=== PATIENT | female | born 1950 | race Two or more races ===

== ENCOUNTER 2016-12-30 16:36 | Inpatient (IN) | payer OTHER ==
--- NOTE | ~2016-12-30 | HP ---
Unit #: [id number] #: [id number] Patient: ZOË PLASCENCIA [id number] [address] [address] [id number] E MR#: [id number] NAME: ZOË PLASCENCIA ROOM: Age: 66 Sex: F Admission Date: 12/30/2016 : 1950 Attending Physician: Hugo Gill D.O. Primary Care Physician: Primary Care Physician No HISTORY AND PHYSICAL CHIEF COMPLAINT Uncontrolled diabetes mellitus, nausea and vomiting. HISTORY OF PRESENT ILLNESS This pleasant 66-year-old German-speaking female with AODM, hypertension, hyperlipidemia, is admitted for uncontrolled diabetes mellitus, along with nausea and vomiting. The patient states that she was well until one week prior to admission when she began to experience nonspecific generalized abdominal pain, mainly in the suprapubic and periumbilical region. Began to experience nonbloody nausea and vomiting times three days, denies melena or hematochezia. She presented to this emergency department this evening with a serum glucose of 414, potassium of 5.7. Her lipase is elevated and a CT scan shows evidence of subtle duodenitis around the second portion of the duodenum. There is a likely 1.6 cm left ovarian cyst as well. In the ER, she was bolused with a liter of saline, given Zofran, Pepcid. Her current serum glucose is 262. Of note, she does take an VANIA inhibitor. PAST MEDICAL HISTORY 1. AODM. 2. Hypertension. 3. Hyperlipidemia. 4. Admission for community-acquired pneumonia December 2014. ALLERGIES None. HOME MEDICATIONS 1. Metformin 1000 mg b.i.d. 2. Lisinopril 10 mg daily. 3. What I believe is Mevacor. SOCIAL HISTORY The patient is originally from [place]. She stopped smoking about 18 years ago. Does not drink alcohol. FAMILY HISTORY Negative for CAD. REVIEW OF SYSTEMS Difficult to obtain due to language barrier, roadmaster was used. PHYSICAL EXAMINATION Unit #: [id number] #: [id number] Patient: ZOË PLASCENCIA VITAL SIGNS: Temperature 98.3, pulse 115, respirations 16, blood pressure 128/83, O2 saturation 94% on room air. GENERAL: Pleasant, 66-year-old female currently in no acute distress. HEENT: Eyes PERRLA. Extraocular muscles are intact. Pharynx is benign. NECK: Supple without adenopathy or thyromegaly. CHEST: Clear. HEART: Normal S1, S2 without S3, S4 or murmur. ABDOMEN: Bowel sounds are present. Mild tenderness in the epigastric region without rebound or guarding. No hepatosplenomegaly or masses. Mildly tender in the suprapubic area but patient does have to use the bathroom. EXTREMITIES: Without clubbing, cyanosis, or edema. Pedal pulses are present. No ulcers on the feet. NEUROLOGIC: Awake, alert, oriented. Cranial nerves are intact. Equal strength throughout. DIAGNOSTIC STUDIES LABORATORY: Hematocrit 43.7, white blood count 15.2, normal platelet count. SMA-12 glucose 414, potassium 5.7, alkaline phosphatase 284, lipase 350. Cardiac markers are negative. Urinalysis positive for glucose without significant wbc's or rbc's. IMAGING: CT scan shows subtle inflammation of the second portion of the duodenum, could be consistent with duodenitis. Likely 1.6 cm left ovarian cyst and bilateral renal cysts. ASSESSMENT 1. Uncontrolled adult-onset diabetes mellitus. 2. Nausea and vomiting for the past three days with elevated lipase and possible duodenitis on CT scan. 3. Hypertension. 4. Hyperkalemia secondary to uncontrolled diabetes mellitus along with VANIA inhibitor. 5. Hyperlipidemia. PLAN 1. Proton pump inhibitor, will ask [facility] to see. 2. Gallbladder ultrasound, check triglycerides level, repeat labs in the morning. 3. Glucose control. Will hold metformin and give sliding scale insulin. 4. Small dose of Kayexalate. 5. SCDs for DVT prophylaxis. 6. Change lisinopril to hydralazine while potassium is elevated. Dictated by Reta Mcnulty/bob TD: 12/30/2016 22:16 JOB #: [id number] [facility] Unit #: [id number] #: [id number] Patient: ZOË PLASCENCIA HISTORY AND PHYSICAL Page 1 of 1 X Brigitte Schuster MD X HISTORY AND PHYSICAL
--- NOTE | ~2016-12-30 | CT2 ---
[facility] A Service of [facility] RADIOLOGY TEXT RESULTS PATIENT: ZOË PLASCENCIA LOCATION: [facility] 338- : 52 UNIT #: [id number] AGE: [address]: Nguyen Cheung MD SEX: F ORDER DR: [id number] [facility] [address] [facility]. [place], [place] [address] [id number] I MR#: [id number] Acc #: [id number] NAME: ZOË PLASCENCIA : 1950 SEX: F STUDY DATE/TIME: 12/30/2016 19:29 UNIT: [address] ROOM: [facility] STUDY DESCRIPTION: CT Abd and Pelv W Cont Attending Physician: Nguyen Cheung M.D. Ordering Physician: Hugo Gill D.O. Primary Care Physician: No Primary Care Physician MEDICAL IMAGING REPORT This report is preliminary unless electronic signature is present EXAM CT abdomen and pelvis 12/30. INDICATION Abdominal pain with nausea and vomiting for 3 days. TECHNIQUE Axial images were obtained through the abdomen and pelvis following IV contrast administration. Multiplanar reformats were obtained. This CT exam was performed with one or more of the following radiation dose reduction techniques: Automatic exposure control, adjustment of mA and/or kV according to patient size, and iterative reconstruction. COMPARISON 04/26/2016. FINDINGS Abdomen: Lung bases are clear. Gallbladder unremarkable. No biliary obstruction is seen. There are bilateral renal cysts. Solid organs are otherwise normal. No free fluid or adenopathy. There is some subtle haziness adjacent to the second and third portions of the duodenum. This could indicate mild duodenitis. The remainder of the unopacified GI tract is normal. Pelvis: The appendix is normal. The remainder of the unopacified GI tract is normal as well. Urinary bladder is normal. There is a probable 1.6 cm left ovarian cyst. Solid pelvic organs are otherwise unremarkable. IMPRESSION 1. Subtle haziness around the second and third portions of the duodenum may reflect mild duodenitis. The remainder of the unopacified GI tract, including the appendix, is normal. STS. [facility] A Service of [facility] RADIOLOGY TEXT RESULTS PATIENT: ZOË PLASCENCIA LOCATION: [facility] 338-01 : [birth year] UNIT #: [id number] AGE: [address]: Nguyen Cheung MD SEX: F ORDER DR: 2. Probable 1.6 cm left ovarian cyst. 3. Bilateral renal cysts. Dictated by... Lane Canales Jr., M.D. THIS IS AN ELECTRONICALLY VERIFIED REPORT Lane Canales Jr., M.D. at 12/31/2016 10:04 AM MARIOLA/anne TD: 12/31/2016 08:15 JOB #: [id number] MEDICAL IMAGING REPORT Page 1 of 1 COPY
--- NOTE | ~2016-12-30 | OR ---
Unit #: [id number] #: [id number] Patient: ZOË PLASCENCIA [id number] [address] [place], [place] [address] [id number] I MR#: [id number] NAME: ZOË PLASCENCIA ROOM: [facility] Date of Procedure: 01/01/2017 Admission Date: 12/30/2016 Surgeon: Pako Carnes M.D. : 1950 Attending Physician: Nguyen Cheung M.D. OPERATIVE REPORT PREOPERATIVE DIAGNOSIS Epigastric pain. POSTOPERATIVE DIAGNOSIS Epigastric pain. PROCEDURE PERFORMED 1. Esophagogastroduodenoscopy. 2. Biopsy from antrum for Helicobacter pylori testing. ANESTHESIA Monitored anesthesia care. FINDINGS The patient had moderate gastritis and small hiatal hernia. SPECIMEN Sent to pathology. COMPLICATIONS None apparent. CONDITION The patient tolerated the procedure well. INDICATIONS FOR PROCEDURE The patient is a 66-year-old female with epigastric pain and discomfort. She presents at this time for evaluation by upper endoscopy. DESCRIPTION OF PROCEDURE After obtaining informed consent, the patient was brought to the endoscopy suite. After adequate monitored anesthesia care, had the endoscope placed through the mouth into the upper esophagus under direct vision. It was advanced to the second portion of the duodenum without difficulty with the lumen always in view. The duodenum was normal as was the duodenal bulb. The pylorus opened normally. There was some mild to moderate gastritis distally and a biopsy was obtained for Helicobacter pylori testing. On retroflexion back to the GE junction, there was a small hiatal hernia seen. No other significant abnormalities were seen in the proximal third, middle third, or incisura. On pulling back above the GE junction, there Unit #: [id number] #: [id number] Patient: ZOË PLASCENCIA was no stenosis, stricture, or neoplasm seen. There was no significant esophagitis. The remaining portion of the esophagus was within normal limits. Laryngeal structures were grossly normal as viewed from above. The patient went from the endoscopy suite to recovery area in stable condition. RECOMMENDATIONS Change to Protonix 40 mg p.o. daily. Advance diet as tolerated. Dictated by... Pako Carnes M.D. KASEY/lisa TD: 01/30/2017 03:18 JOB #: [id number] CC: [facility] OPERATIVE REPORT Page 1 of 1 X Pako Carnes MD PROCEDURE OPERATIVE NOTE
--- NOTE | ~2016-12-30 | US67 ---
[facility] A Service of [facility] RADIOLOGY TEXT RESULTS PATIENT: ZOË PLASCENCIA LOCATION: [facility] : 54 UNIT #: [id number] AGE: [address]: Nguyen Cheung MD SEX: F ORDER DR: [id number] [facility] [address] [facility]. [place], [place] [address] [id number] I MR#: [id number] Acc #: [id number] NAME: ZOË PLASCENCIA : 1950 SEX: F STUDY DATE/TIME: 12/31/2016 8:30 UNIT: [address] ROOM: [facility] STUDY DESCRIPTION: US Gallbladder Attending Physician: Nguyen Cheung M.D. Ordering Physician: Hugo Gill D.O. Primary Care Physician: Primary Care Physician No MEDICAL IMAGING REPORT This report is preliminary unless electronic signature is present EXAM Right upper quadrant ultrasound INDICATION Generalized abdominal pain for [address] scan of the abdomen. COMPARISON CT abdomen and pelvis, 12/30/2016. FINDINGS The visualized portions of the pancreas are normal. The echogenicity and echotexture of the hepatic parenchyma is normal. No hepatic mass. The intrahepatic bile ducts are normal in caliber. The common duct is normal in size at the anabell hepatis measuring 0.2 cm. The gallbladder is not distended. There is borderline thickening of the gallbladder wall measuring 0.3-0.4 cm. No gallstones are identified. This borderline gallbladder wall thickening is probably related to a lack of distension. The right kidney measures 12.5 cm. Renal cortical thickness and echogenicity is normal. No hydronephrosis. No ascites. IMPRESSION 1. No gallstones. 2. Borderline thickening of the gallbladder wall is likely due to the lack of distension. Dictated by... Fredy Raymond M.D. [facility] A Service of [facility] RADIOLOGY TEXT RESULTS PATIENT: ZOË PLASCENCIA LOCATION: [facility] : 52 UNIT #: [id number] AGE: [address]: Nguyen Cheung MD SEX: F ORDER DR: THIS IS AN ELECTRONICALLY VERIFIED REPORT Fredy Raymond M.D. at 12/31/2016 1:46 PM Olena TD: 12/31/2016 12:02 JOB #: [id number] MEDICAL IMAGING REPORT Page 1 of 1 COPY
--- NOTE | ~2016-12-30 | CO ---
Unit #: [id number] #: [id number] Patient: ZOË PLASCENCIA [id number] [address] [place], [place] [address] [id number] I MR#: [id number] NAME: ZOË PLASCENCIA ROOM: 338 Age: 66 Sex: F Admission Date: 12/30/2016 : 1950 Attending Physician: Nguyen Cheung M.D. Primary Care Physician: Primary Care Physician No Consultation Date: 12/31/2016 CONSULTATION REPORT BRIEF HISTORY The patient is a 66-year-old lady, who presents with a 2-day history of nausea, vomiting, abdominal pain. No fevers. No chills. No history of similar type pain. She was admitted to the emergency room and worked up and found to have potassium 5.1, and blood glucose of 414. On my evaluation, she denies any abdominal pain. Has not vomited over the evening. PAST MEDICAL HISTORY Diabetes. PAST SURGICAL HISTORY She has had no previous surgeries. HOME MEDICATIONS Omeprazole, Phenergan, Glucophage, Zantac, and glipizide. SOCIAL HISTORY No smoking. No alcohol. FAMILY HISTORY Negative for GI malignancy. REVIEW OF SYSTEMS No cardiopulmonary complaints at this time. Else, 10 systems reviewed and negative. PHYSICAL EXAMINATION GENERAL: She is awake, alert, appropriate, in no distress. VITAL SIGNS: Currently, afebrile. HEENT: Unremarkable. NECK: Supple. Trachea midline. LUNGS: Clear to auscultation bilateral. Breath sounds symmetric. CARDIOVASCULAR: Regular rate and rhythm. ABDOMEN: Soft, nontender, nondistended. I palpated no masses. No hepatosplenomegaly. EXTREMITIES: No clubbing, cyanosis, or edema. DIAGNOSTIC STUDIES LABORATORY RESULTS: Show potassium of 5.7. Chemistries are else normal. White count normal. IMAGING STUDIES: CT scan is pending. Unit #: [id number] #: [id number] Patient: ZOË PLASCENCIA ASSESSMENT Abdominal pain, nausea, vomiting. PLAN Recommend correcting glucose and potassium. We will plan for EGD evaluation. Agree with proton pump inhibitors. Dictated by... Nima Leal M.D. DONNA/lisa TD: 01/01/2017 01:54 JOB #: [id number] CONSULTATION REPORT Page 1 of 1 X Nima Leal MD CONSULTATION REPORT
--- NOTE | ~2016-12-30 | DS ---
Unit #: [id number] #: [id number] Patient: ZOË PLASCENCIA [id number] [address] [address] [id number] I MR#: [id number] NAME: ZOË PLASCENCIA ROOM: 338 Age: 66 Sex: F Admission Date: 12/30/2016 : 1950 Discharge Date: Attending Physician: Nguyen Cheung M.D. Primary Care Physician: No Primary Care Physician DISCHARGE SUMMARY DISCHARGE DIAGNOSES 1. Acute idiopathic pancreatitis. 2. Acute gastritis. 3. Acute duodenitis. 4. Diabetes mellitus type 2, uncontrolled. 5. Hypertension, uncontrolled. 6. Hyperlipidemia. 7. Hyperkalemia. CONSULTATION LSA. PROCEDURE Patient had EGD, which shows gastritis and a small hiatal hernia. DIAGNOSTIC STUDIES LABORATORY: Glucose 215, sodium 135, potassium 4, creatinine 0.4, AST 15, ALT 26, alkaline phosphatase 206, bilirubin (1) , and albumin 3.1. WBC 9.1, hemoglobin 13.3, and platelets 313. IMAGING: Ultrasound of the gallbladder shows no gallstones. Borderline thickening of gallbladder wall, likely due to lack of distention. CT abdomen and pelvis shows mild duodenitis. ALLERGIES None. DISCHARGE MEDICATIONS 1. Tylenol 650 q.6 p.r.n. pain. 2. Metformin 1000 p.o. b.i.d. 3. Lovastatin 40 daily. 4. Lisinopril 10 daily. 5. Lortab 5 mg q.8 p.r.n. pain. 6. Zyprexa 20 p.o. daily. Home medications: 7. Protonix 40 daily. 8. Glipizide 10 mg p.o. b.i.d. HOSPITALIZATION COURSE This is a 66-year-old admitted because of abdominal pain and nausea/vomiting. Acute idiopathic pancreatitis: Ultrasound is negative for gallstones. Unit #: [id number] #: [id number] Patient: ZOË PLASCENCIA She denies having any alcohol. I reviewed her medications. I do not think any medication is causing it. She was NPO. IV fluids given. LSA saw this patient. Currently, she wants to eat. I am going to resume her low-fat diet. If tolerates, patient will be discharged home. Acute duodenitis and gastritis: Status post EGD with nausea and vomiting. Currently, nausea and vomiting resolved. Patient will be discharged on Protonix. DISCHARGE INSTRUCTIONS 1. Discharge home after tolerating diet. 2. Follow up with family physician in one week's time. Dictated by... Reta Vera TD: 01/01/2017 13:44 JOB #: [id number] DISCHARGE SUMMARY Page 1 of 1 X Nguyen Cheung MD X DISCHARGE SUMMARY
[~2016-12-30 16:36] MED LIST: ACETAMINOPHEN650 M1 PO; AMARYL2 MG PO; CIPRO PO; GLIPIZIDE10 MG PO; LORTAB 5-325 M1 EACH PO; METFORMIN HCL500 M1 PO; METFORMIN PO; MEVACOR PO; OMEPRAZOLE40 MG PO; PHENERGAN25 MG PO; RANITIDINE HCL150 M1 PO; ZESTRIL10 M2 PO; ZOFRAN ODT4 MG PO
[2016-12-30 18:10] LABS: POC - CKMB <1.0 ng/mL (0.0-7.9); POC - TROPONIN <0.05 ng/mL (<=0.05)
[2016-12-30 18:26] LABS: BASOPHIL# 0.1 X10e3 (0-0.3); BASOPHIL% 0.8 % (0-2.5); DIFF IND YES; EOSINOPHIL# 0.2 X10e3 (0-0.7); EOSINOPHIL% 1.4 % (0.0-7.0); HEMATOCRIT 43.7 % (35.0-45.0); HEMOGLOBIN 14.4 gm/dL (12.0-16.0); LYMPHOCYTE# 3.9 X10e3 (1.0-3.5); LYMPHOCYTE% 25.6 % (17.0-45.0); MEAN CELL VOLUME 92.1 FL (83-96); MEAN CORPUSCULAR HEMOGLOBIN 30.3 PG (28-34); MEAN CORPUSCULAR HGB CONC 32.9 g/dL (30-36); MEAN PLATELET VOLUME 9.3 FL (6.5-11.5); MONOCYTE# 0.9 X10e3 (0-1.0); MONOCYTE% 6.2 % (3.0-12.0); PLATELET COUNT 337 X10e3 (140-420); RED BLOOD COUNT 4.75 X10e (3.90-5.30); WHITE BLOOD COUNT 15.2 X10e3 (4.0-10.5)
[2016-12-30 18:41] LABS: ALBUMIN SERUM 4.2 g/dL (3.5-5.0); ALKALINE PHOSPHATASE 284 U/L (32-92); ALT (SGPT) 39 U/L (10-40); AST (SGOT) 20 U/L (10-42); BILIRUBIN,TOTAL 0.4 mg/dL (0.2-2.0); BLOOD UREA NITROGEN 21 mg/dL (9-23); CALCIUM SERUM 9.8 mg/dL (8.4-10.2); CARBON DIOXIDE 30 mmol/L (22-31); CHLORIDE 94 mmol/L (100-111); CREATININE SERUM 0.7 mg/dL (0.6-1.4); GLOM FILT RATE Estimated 91.6 mL/min (>60); GLUCOSE FASTING 414 mg/dL (70-110); LIPASE 350 U/L (22-51); SODIUM 132 mmol/L (135-145)
[2016-12-30 18:45] LABS: BILIRUBIN, DIRECT <0.1 mg/dL (0.0-0.2); BILIRUBIN,INDIRECT 0.3 mg/dL (0.0-0.9); POTASSIUM 5.7 mmol/L (3.5-5.1)
[2016-12-30 19:01] LABS: URINE SOURCE CLEAN CATCH
[2016-12-30 19:04] LABS: URINE APPEARANCE CLEAR; URINE BILIRUBIN NEG (NEG); URINE BLOOD NEG (NEG); URINE COLOR YELLOW; URINE GLUCOSE >1000 MG/DL (NEG); URINE KETONE 1+ (NEG); URINE LEUKOCYTE ESTERASE NEG (NEG); URINE NITRATE NEG (NEG); URINE PROTEIN NEG (NEG); URINE SPECIFIC GRAVITY 1.031 (1.003-1.035)
[2016-12-30 19:15] LABS: PLATELET ESTIMATE NORMAL (NORMAL); RBC NORMAL YES
[2016-12-30 19:21] LABS: CULTURE INDICATED? NO
[2016-12-31 05:45] LABS: HEMATOCRIT 39.2 % (35.0-45.0); HEMOGLOBIN 12.9 gm/dL (12.0-16.0); MEAN CELL VOLUME 92.6 FL (83-96); MEAN CORPUSCULAR HEMOGLOBIN 30.4 PG (28-34); MEAN CORPUSCULAR HGB CONC 32.8 g/dL (30-36); MEAN PLATELET VOLUME 8.2 FL (6.5-11.5); RED BLOOD COUNT 4.24 X10e (3.90-5.30); RED CELL DISTRIBUTION WIDTH 13.1 % (11.0-15.5); WHITE BLOOD COUNT 10.1 X10e3 (4.0-10.5)
[2016-12-31 06:09] LABS: PARTIAL THROMBOPLASTIN TIME 24.1 SECONDS (23.5-31.3); PROTHROMBIN TIME (PATIENT) 10.9 SECONDS (9.6-11.5)
[2016-12-31 07:01] LABS: ALBUMIN SERUM 3.3 g/dL (3.5-5.0); BILIRUBIN,TOTAL 0.2 mg/dL (0.2-2.0); CALCIUM SERUM 8.3 mg/dL (8.4-10.2); CREATININE SERUM 0.5 mg/dL (0.6-1.4); GLOM FILT RATE Estimated 102.3 mL/min (>60); POTASSIUM 4.5 mmol/L (3.5-5.1); PROTEIN TOTAL SERUM 6.2 g/dL (6.0-8.3)
[2017-01-01 05:47] LABS: HEMATOCRIT 40.7 % (35.0-45.0); HEMOGLOBIN 13.3 gm/dL (12.0-16.0); MEAN CORPUSCULAR HEMOGLOBIN 30.4 PG (28-34); MEAN CORPUSCULAR HGB CONC 32.6 g/dL (30-36); MEAN PLATELET VOLUME 8.1 FL (6.5-11.5); RED BLOOD COUNT 4.38 X10e (3.90-5.30); RED CELL DISTRIBUTION WIDTH 13.1 % (11.0-15.5); WHITE BLOOD COUNT 9.1 X10e3 (4.0-10.5)
[2017-01-01 07:05] LABS: ALBUMIN SERUM 3.1 g/dL (3.5-5.0); BILIRUBIN,TOTAL 0.2 mg/dL (0.2-2.0); BUN/CREATININE RATIO 22.5; CALCIUM SERUM 8.8 mg/dL (8.4-10.2); CREATININE SERUM 0.4 mg/dL (0.6-1.4); GLOM FILT RATE Estimated 110.1 mL/min (>60); PROTEIN TOTAL SERUM 5.9 g/dL (6.0-8.3)
[2017-01-01] MEDS ORDERED: PANTOPRAZOLE SO40 MG PO (15:32)
[2017-01-01] MEDS ORDERED: OLANZAPINE10 MG PO (15:33)
[2017-01-03 23:13] LABS: CHLAMYDIA TRACH Not Detected (Not Detected); N GONOR Not Detected (Not Detected)
== END 2017-01-01 17:35 | disposition home or self-care (01) | DRG 637 ==
LOC: CED 16:36 → CEDOF 22:15 → C3A PCU 22:15 → CEDOF 23:23 → C3A PCU 23:23 → CED 23:23 → CEDOF 12-31 02:28 → C3A PCU 12-31 02:28
PROVIDERS: Emergency Medicine; Internal Medicine; Surgery
PROC: 0DB78ZX Excision of Stomach, Pylorus, Via Natural or Artificial Opening Endoscopic, Diagnostic (ICD-10-PCS; principal; 2017-01-01 12:00)
DX: E11.65 Type 2 diabetes mellitus with hyperglycemia (principal); K85.00 Idiopathic acute pancreatitis without necrosis or infection; K29.80 Duodenitis without bleeding; K29.00 Acute gastritis without bleeding; E78.5 Hyperlipidemia, unspecified; I10 Essential (primary) hypertension; E87.5 Hyperkalemia; K44.9 Diaphragmatic hernia without obstruction or gangrene; Z79.84 Long term (current) use of oral hypoglycemic drugs; Z87.891 Personal history of nicotine dependence; N83.202 Unspecified ovarian cyst, left side
CPT/HCPCS: 36415; 74177; 76705; 80048; 80053; 80076; 81003; 82150; 82553; 82947; 83690; 84478; 84484; 85025; 85027; 85610; 85730; 87077; 87491; 87591; 87808; 87905; 96361; 96374; 96375; 99285; C9113; J1815; J2060; J2270; J2405; Q9967

== ENCOUNTER 2017-03-08 09:17 | Emergency (ER) | payer OTHER ==
[~2017-03-08] VITALS: Ht 172.7 cm; Wt 54.4 kg
--- NOTE | ~2017-03-08 | CT4 ---
[facility] A Service of [facility] RADIOLOGY TEXT RESULTS PATIENT: ZOË PLASCENCIA LOCATION: [facility] : 54 UNIT #: [id number] AGE: [address]: Linda Millan MD SEX: F ORDER DR: [id number] [facility] [address] [place], [place] [address] [id number] E MR#: [id number] Acc #: [id number] NAME: ZOË PLASCENCIA : 1950 SEX: F STUDY DATE/TIME: 03/08/2017 11:53 UNIT: [facility] ROOM: STUDY DESCRIPTION: CT Abd and Pelv Wo Cont Attending Physician: Linda Millan M.D. Ordering Physician: Linda Millan M.D. Primary Care Physician: No Primary Care Physician MEDICAL IMAGING REPORT This report is preliminary unless electronic signature is present EXAM CT of abdomen and pelvis without IV contrast. COMPARISON December 30, 2016 and January 08, 2012. INDICATIONS 66-year-old female with diffuse abdominal pain for [address] imaging of the abdomen and pelvis was performed without IV contrast. Coronal and sagittal reformats were constructed. Lack of IV contrast limits evaluation of adenopathy, vasculature and viscera. This CT exam was performed with one or more of the following radiation dose reduction techniques: automatic exposure control, adjustment of mA and/or kV according to patient size, and iterative reconstruction. Tiny fat-containing umbilical hernia. No acute fractures or suspicious osseous lesions. Small posterior disc protrusions L2-L3 through L4-L5. Band-like atelectasis in the anterior right middle lobe. No acute findings in the imaged lower chest. There is marked fluid distension of the stomach. Unenhanced liver, gallbladder, pancreas, spleen and adrenal glands are unremarkable. There is a benign cyst in mid pole of the left kidney and there is also likely benign cyst in the inferior right kidney, not well characterized on this noncontrast exam. No renal or ureteral calculi. Urinary bladder is grossly unremarkable. CT appearance of the uterus is unremarkable. 1.8 cm lesion with negative Hounsfield units in the left adnexal region, most in keeping with a dermoid cyst. No free fluid in the abdomen or pelvis. No pneumoperitoneum. No evidence of acute appendicitis. There is a moderate colonic stool burden. No evidence of mechanical bowel STS. [facility] A Service of [facility] RADIOLOGY TEXT RESULTS PATIENT: ZOË PLASCENCIA LOCATION: [facility] : 52 UNIT #: [id number] AGE: [address]: Linda Millan MD SEX: F ORDER DR: obstruction. Normal caliber of the abdominal aorta. Calcifications of the infrarenal abdominal aorta extending into iliac arteries. No evidence of adenopathy. IMPRESSION 1. No acute findings in the abdomen, pelvis or imaged lower chest. There is fluid distension of the stomach. 2. There is a benign lesion in the left ovary most in keeping with a dermoid cyst. 3. Multilevel small posterior disc protrusions over the lumbar spine. 4. There are likely cysts in each kidney, not well characterized without IV contrast. These are better demonstrated on postcontrast CT of December 30, 2016. 1. Dictated by... Noah Culver M.D. THIS IS AN ELECTRONICALLY VERIFIED REPORT Noah Culver M.D. at 03/13/2017 12:06 PM Sylvia TD: 03/08/2017 15:41 JOB #: [id number] MEDICAL IMAGING REPORT Page 1 of 1 COPY
--- NOTE | ~2017-03-08 | EKG ---
PATIENT: ZOË PLASCENCIA UNIT #: [id number] Ventricular Rate: 100 BPM Atrial Rate: 100 BPM P-R Interval: 140 ms QRS Duration: 66 ms Q-T Interval: 320 ms QTC Calculation(Bezet): 412 ms P [place]: 58 degrees Calculated R [place]: -21 degrees Calculated T [place]: 47 degrees Diagnosis Line: Normal sinus rhythm Diagnosis Line: Minimal voltage criteria for LVH, may be normal Diagnosis Line: variant Diagnosis Line: Nonspecific ST elevation Diagnosis Line: Borderline ECG Diagnosis Line: Diagnosis Line: Confirmed by BRITNI FRANKLIN MD ([id number]) on 03/09/2017 Diagnosis Line: 5:53:53 PM INTERPRETING MD: NOEMI BASILIO
[~2017-03-08 09:17] MED LIST changes: +OLANZAPINE10 MG PO; +PANTOPRAZOLE SO40 MG PO
[2017-03-08 10:33] LABS: POC - CKMB <1.0 ng/mL (0.0-7.9); POC - TROPONIN <0.05 ng/mL (<=0.05)
[2017-03-08 11:34] LABS: BASOPHIL# 0.1 X10e3 (0-0.3); BASOPHIL% 0.7 % (0-2.5); EOSINOPHIL# 0.2 X10e3 (0-0.7); EOSINOPHIL% 1.7 % (0.0-7.0); HEMATOCRIT 41.2 % (35.0-45.0); HEMOGLOBIN 13.9 gm/dL (12.0-16.0); LYMPHOCYTE# 3.5 X10e3 (1.0-3.5); LYMPHOCYTE% 29.3 % (17.0-45.0); MEAN CORPUSCULAR HGB CONC 33.7 g/dL (30-36); MEAN PLATELET VOLUME 8.8 FL (6.5-11.5); MONOCYTE# 0.8 X10e3 (0-1.0); MONOCYTE% 6.3 % (3.0-12.0); NEUTROPHIL# 7.4 X10e3 (1.5-7.1); PLATELET COUNT 323 X10e3 (140-420); RED BLOOD COUNT 4.48 X10e (3.90-5.30); RED CELL DISTRIBUTION WIDTH 13.5 % (11.0-15.5)
[2017-03-08 11:36] LABS: DIFF IND NO
[2017-03-08 11:43] LABS: URINE SOURCE CLEAN CATCH
[2017-03-08 11:47] LABS: URINE APPEARANCE CLEAR; URINE BILIRUBIN NEG (NEG); URINE BLOOD NEG (NEG); URINE COLOR DK YELLOW; URINE GLUCOSE >1000 MG/DL (NEG); URINE KETONE TRACE (NEG); URINE LEUKOCYTE ESTERASE TRACE (NEG); URINE NITRATE NEG (NEG); URINE PROTEIN NEG (NEG); URINE SPECIFIC GRAVITY 1.035 (1.003-1.035)
[2017-03-08 11:49] LABS: CULTURE INDICATED? YES; URINE SQUAMOUS EPITHELIAL CELL OCC /[HPF]
[2017-03-08 12:02] LABS: ALBUMIN SERUM 4.1 g/dL (3.5-5.0); BILIRUBIN, DIRECT 0.1 mg/dL (0.0-0.2); BILIRUBIN,TOTAL 0.1 mg/dL (0.2-2.0); BUN/CREATININE RATIO 22.85; CREATININE SERUM 0.7 mg/dL (0.6-1.4); GLOM FILT RATE Estimated 91.6 mL/min (>60); POTASSIUM 5.4 mmol/L (3.5-5.1); PROTEIN TOTAL SERUM 7.4 g/dL (6.0-8.3)
[2017-03-08 12:11] LABS: URBCS1 AUWI 0-2 /[HPF] (0-2); URINE BACTERIA AUWI 1+ (NEGATIVE)
== END 2017-03-08 16:22 | disposition home or self-care (01) ==
LOC: CED 09:17
PROVIDERS: Emergency Medicine
DX: N39.0 Urinary tract infection, site not specified (principal); I10 Essential (primary) hypertension; Z79.899 Other long term (current) drug therapy
CPT/HCPCS: 36415; 74176; 80048; 80076; 81003; 82150; 82553; 83690; 84484; 85025; 87086; 93005; 96361; 96374; 96375; 99285; J1885; J2270; J2405

== ENCOUNTER 2017-03-12 01:57 | Emergency (ER) | payer OTHER ==
[~2017-03-12] VITALS: Ht 157.5 cm; Wt 54.4 kg
[2017-03-12 04:20] LABS: BASOPHIL# 0.1 X10e3 (0-0.3); EOSINOPHIL# 0.3 X10e3 (0-0.7); EOSINOPHIL% 2.3 % (0.0-7.0); HEMATOCRIT 41.7 % (35.0-45.0); HEMOGLOBIN 13.9 gm/dL (12.0-16.0); LYMPHOCYTE# 5.5 X10e3 (1.0-3.5); LYMPHOCYTE% 42.5 % (17.0-45.0); MEAN CELL VOLUME 91.9 FL (83-96); MEAN CORPUSCULAR HEMOGLOBIN 30.6 PG (28-34); MEAN CORPUSCULAR HGB CONC 33.3 g/dL (30-36); MEAN PLATELET VOLUME 8.2 FL (6.5-11.5); MONOCYTE% 8.1 % (3.0-12.0); NEUTROPHIL% 46.1 % (40-75); PLATELET COUNT 378 X10e3 (140-420); RED BLOOD COUNT 4.54 X10e (3.90-5.30); RED CELL DISTRIBUTION WIDTH 13.6 % (11.0-15.5); WHITE BLOOD COUNT 12.9 X10e3 (4.0-10.5)
[2017-03-12 04:25] LABS: DIFF IND NO
[2017-03-12 04:43] LABS: ALBUMIN SERUM 4.1 g/dL (3.5-5.0); BILIRUBIN, DIRECT 0.1 mg/dL (0.0-0.2); BILIRUBIN,INDIRECT 0.5 mg/dL (0.0-0.9); BILIRUBIN,TOTAL 0.6 mg/dL (0.2-2.0); CALCIUM SERUM 10.1 mg/dL (8.4-10.2); CREATININE SERUM 0.8 mg/dL (0.6-1.4); POTASSIUM 4.3 mmol/L (3.5-5.1)
== END 2017-03-12 06:01 | disposition home or self-care (01) ==
LOC: CED 01:57
PROVIDERS: Emergency Medicine
DX: K29.00 Acute gastritis without bleeding (principal); K29.50 Unspecified chronic gastritis without bleeding; R73.9 Hyperglycemia, unspecified; F17.200 Nicotine dependence, unspecified, uncomplicated; Z79.899 Other long term (current) drug therapy
CPT/HCPCS: 36415; 80048; 80076; 82150; 82947; 83690; 85025; 96361; 96374; 99284

== ENCOUNTER 2017-03-13 14:15 | Emergency (ER) | payer OTHER ==
[~2017-03-13] VITALS: Ht 162.6 cm; Wt 54.4 kg
--- NOTE | ~2017-03-13 | CR72 ---
[facility] A Service of [facility] RADIOLOGY TEXT RESULTS PATIENT: ZOË PLASCENCIA LOCATION: [facility] : 52 UNIT #: [id number] AGE: [address]: Raul Stephenson MD SEX: F ORDER DR: [id number] [facility] [address] [place], [place] [address] [id number] E MR#: [id number] Acc #: [id number] NAME: ZOË PLASCENCIA : 1950 SEX: F STUDY DATE/TIME: 03/13/2017 15:11 UNIT: [facility] ROOM: STUDY DESCRIPTION: CR Chest Single View Portable Attending Physician: Jesus Stephenson M.D. Ordering Physician: Ed Carlos Bolden M.D. Primary Care Physician: No Primary Care Physician MEDICAL IMAGING REPORT This report is preliminary unless electronic signature is present EXAM Portable chest 1 view, date of study 03/13/2017 COMPARISON 02/18/2015 HISTORY Short of air for 1 day. FINDINGS Mild, nonspecific, symmetric interstitial prominence, but no consolidation or effusion or pneumothorax, heart size within normal limits. It is possible interstitial prominence but is primarily secondary to submaximal inspiratory result. Dictated by... Gus Araya M.D. THIS IS AN ELECTRONICALLY VERIFIED REPORT Gus Araya M.D. at 03/17/2017 9:09 AM TEV/psc TD: 03/13/2017 22:34 JOB #: [id number] MEDICAL IMAGING REPORT Page 1 of 1 COPY
--- NOTE | ~2017-03-13 | EKG ---
PATIENT: ZOË PLASCENCIA UNIT #: [id number] Ventricular Rate: 110 BPM Atrial Rate: 110 BPM P-R Interval: 138 ms QRS Duration: 72 ms Q-T Interval: 318 ms QTC Calculation(Bezet): 430 ms P [place]: 62 degrees Calculated R [place]: -27 degrees Calculated T [place]: 49 degrees Diagnosis Line: Sinus tachycardia Diagnosis Line: Minimal voltage criteria for LVH, may be normal Diagnosis Line: variant Diagnosis Line: Cannot rule out , old Septal infarct Diagnosis Line: Borderline ECG Diagnosis Line: When compared with ECG of 08-MAR-2017 09:59, Diagnosis Line: No significant change was found Diagnosis Line: Confirmed by BRITNI FRANKLIN MD ([id number]) on 03/14/2017 Diagnosis Line: 5:06:12 PM INTERPRETING MD: NOEMI BASILIO
[2017-03-13 16:56] LABS: BASOPHIL# 0.1 X10e3 (0-0.3); BASOPHIL% 0.6 % (0-2.5); EOSINOPHIL# 0.3 X10e3 (0-0.7); EOSINOPHIL% 2.3 % (0.0-7.0); HEMATOCRIT 40.5 % (35.0-45.0); HEMOGLOBIN 13.4 gm/dL (12.0-16.0); LYMPHOCYTE# 3.7 X10e3 (1.0-3.5); LYMPHOCYTE% 24.6 % (17.0-45.0); MEAN CELL VOLUME 92.9 FL (83-96); MEAN CORPUSCULAR HEMOGLOBIN 30.7 PG (28-34); MEAN CORPUSCULAR HGB CONC 33.1 g/dL (30-36); MEAN PLATELET VOLUME 8.1 FL (6.5-11.5); MONOCYTE# 0.8 X10e3 (0-1.0); MONOCYTE% 5.1 % (3.0-12.0); NEUTROPHIL# 10.1 X10e3 (1.5-7.1); NEUTROPHIL% 67.4 % (40-75); PLATELET COUNT 322 X10e3 (140-420); RED BLOOD COUNT 4.37 X10e (3.90-5.30); RED CELL DISTRIBUTION WIDTH 13.9 % (11.0-15.5); WHITE BLOOD COUNT 14.9 X10e3 (4.0-10.5)
[2017-03-13 16:58] LABS: DIFF IND NO
[2017-03-13 17:03] LABS: POC - CKMB 1.9 ng/mL (0.0-7.9); POC - TROPONIN <0.05 ng/mL (<=0.05)
[2017-03-13 17:08] LABS: PARTIAL THROMBOPLASTIN TIME 21.4 SECONDS (23.5-31.3); PROTHROMBIN TIME (PATIENT) 10.6 SECONDS (10.0-11.7)
[2017-03-13 17:12] LABS: BUN/CREATININE RATIO 18.33; CALCIUM SERUM 9.4 mg/dL (8.4-10.2); CREATININE SERUM 0.6 mg/dL (0.6-1.4); GLOM FILT RATE Estimated 96.3 mL/min (>60); POTASSIUM 4.7 mmol/L (3.5-5.1)
[2017-03-13 18:36] LABS: POC - CKMB 1.5 ng/mL (0.0-7.9); POC - TROPONIN <0.05 ng/mL (<=0.05)
== END 2017-03-13 20:00 | disposition home or self-care (01) ==
LOC: CED 14:15
PROVIDERS: Emergency Medicine
DX: R07.89 Other chest pain (principal); E11.65 Type 2 diabetes mellitus with hyperglycemia; F17.200 Nicotine dependence, unspecified, uncomplicated; Z79.899 Other long term (current) drug therapy
CPT/HCPCS: 36415; 71010; 80048; 82553; 82947; 83690; 83880; 84484; 85025; 85610; 85730; 93005; 99285; J1885